=== PATIENT | female | born 1985 | race Caucasian/White ===

== ENCOUNTER 2021-10-25 16:15 | Inpatient (IN) | payer MEDICAID ==
[~2021-10-25] VITALS: Ht 154.9 cm; Wt 78.5 kg
[2021-10-25] MEDS ORDERED: LR 1,000 ML IV SCH (21:00)
[2021-10-25] MEDS ORDERED: CEFAZOLIN 2 GM IVPB PREMIX 50 ML IV ONE (21:00)
[2021-10-25 21:41] LABS: BASOPHILS % (AUTO) 0.4 % (0.0-2.0); EOSINOPHILS % (AUTO) 0.4 % (0.0-4.0); HEMATOCRIT 35.8 % (36-48); HEMOGLOBIN 12.3 g/dL (12.0-16.0); LYMPHOCYTES # (AUTO) 1.8 K/uL (1.0-5.5); LYMPHOCYTES % (AUTO) 23.3 % (20.5-51.5); MEAN CORPUSCULAR HEMOGLOBIN 32 pg (27-31); MEAN CORPUSCULAR HGB CONC 34 % (32-36); MEAN CORPUSCULAR VOLUME 92 fL (79.0-98.0); MONOCYTES # (AUTO) 0.6 K/uL (0.0-1.0); MONOCYTES % (AUTO) 7.6 % (1.7-9.3); NEUTROPHILS # (AUTO) 5.2 K/uL (1.8-7.7); NEUTROPHILS % (AUTO) 68.3 % (40.0-70.0); PLATELET COUNT (AUTO) 168 K/uL (130-430); RED BLOOD CELL COUNT(AUTO) 3.89 MIL/uL (4.2-6.2); RED CELL DISTRIBUTION WIDTH 15.8 % (9.0-15.0); WHITE BLOOD COUNT (AUTO) 7.6 K/uL (4.8-10.8)
[2021-10-25 22:41] VITALS: BP_SYST 116
[2021-10-25] MEDS ORDERED: ACETAMINOPHEN 325 MG TABLET PO PRN (23:15)
[2021-10-26 02:58] LABS: BILIRUBIN,URINE NEGATIVE (NEGATIVE); BLOOD, URINE 1+ (NEGATIVE); CLARITY/URINE CLEAR (CLEAR); COLOR,URINE YELLOW (YELLOW); GLUCOSE,URINE NEGATIVE (NEGATIVE); KETONES,URINE NEGATIVE (NEGATIVE); LEUKOCYTE ESTERASE ,URINE 3+ (NEGATIVE); NITRITE, URINE NEGATIVE (NEGATIVE); PROTEIN URINE NEGATIVE (NEGATIVE); UROBILINOGEN,URINE 0.2 (0.2-1.0)
[2021-10-26 03:43] LABS: BACTERIA,URINE MANY /HPF (None Seen)
[2021-10-26] MEDS ORDERED: NALBUPHINE HCL 10 MG/ML AMP IVP PRN ×2 (16:15)
[2021-10-26] MEDS ORDERED: fentaNYL CITRATE/PF 100 MCG/2 ML AMP IVP PRN ×2 (16:15)
[2021-10-26] MEDS ORDERED: DIPHENHYDRAMINE INJ 50 MG/ML VIAL IVP PRN ×2 (16:15)
[2021-10-26] MEDS ORDERED: NALOXONE HCL 0.4 MG/ML AMP (NARCAN) IVP PRN ×4 (16:15)
[2021-10-26] MEDS ORDERED: ONDANSETRON HCL 4 MG/2 ML VIAL IVP PRN ×3 (16:15)
[2021-10-26] MEDS ORDERED: KETOROLAC TROMETHAMINE 60 MG/2 ML VIAL IM PRN ×2 (16:15)
[2021-10-26] MEDS ORDERED: METOCLOPRAMIDE HCL 10 MG/2 ML VIAL IVP PRN (16:15)
[2021-10-26] MEDS ORDERED: BUPIVACAINE /PF 0.75% 10 ML VIAL INJ ONE (18:00)
[2021-10-26] MEDS ORDERED: LR 1,000 ML IV.SOLN IV ONE (18:00)
[2021-10-26] MEDS ORDERED: NS IRRIG SOLN 1000 ML IR ONE (18:00)
[2021-10-26 18:56] VITALS: BP_SYST 105
[2021-10-26] MEDS ORDERED: OXYTOCIN/0.9 % SODIUM CHLORIDE 1,000 ML IV ONE (19:15)
[2021-10-26] MEDS ORDERED: OXYCODONE/ACETAMINOPHEN 5-325 TABLET PO PRN (19:15)
[2021-10-26] MEDS ORDERED: DIPH-TET-PERTUS Vaccine 0.5 ML VIAL (ADACEL) I.M. PRN (19:15)
[2021-10-26] MEDS ORDERED: ANUSOL 1 EA SUPP.RECT (PREPARATION H) RC PRN (19:15)
[2021-10-26] MEDS ORDERED: BISACODYL 10 MG/SUPPOSITORY RC PRN (19:15)
[2021-10-26] MEDS ORDERED: MEASLES,MUMPS&RUBELLA VACC/PF 12500 UNIT/0.5 ML VIAL SUBQ PRN (19:15)
[2021-10-26] MEDS ORDERED: RHO(D) IMMUNE GLOBULIN/MALTOSE 1500 UNITS/1.3 ML (WINHRO) IM PRN (19:15)
[2021-10-26] MEDS ORDERED: TEMAZEPAM 15 MG CAPSULE PO PRN (19:15)
[2021-10-26] MEDS ORDERED: LANOLIN 7 GM OINT. TP PRN (19:15)
[2021-10-26] MEDS ORDERED: LR 1,000 ML IV SCH (19:15)
[2021-10-26] MEDS: SIMETHICONE 80 MG TAB.CHEW PO PRN (21:30)
[2021-10-26] MEDS: SENNOSIDES/DOCUSATE SODIUM 1 TAB TABLET(SENOKOT-S) PO SCH (21:30)
[2021-10-27] MEDS ORDERED: MEPERIDINE HCL/PF 25 MG/ML DISP.SYRIN IVP PRN (01:00)
[2021-10-27] MEDS ORDERED: KETOROLAC TROMETHAMINE 30 MG VIAL IVP ONE (01:00)
[2021-10-27 07:24] LABS: BASOPHILS % (AUTO) 0.1 % (0.0-2.0); EOSINOPHILS % (AUTO) 0.1 % (0.0-4.0); HEMATOCRIT 32.6 % (36-48); HEMOGLOBIN 11.1 g/dL (12.0-16.0); LYMPHOCYTES # (AUTO) 1.2 K/uL (1.0-5.5); LYMPHOCYTES % (AUTO) 13.5 % (20.5-51.5); MEAN CORPUSCULAR HEMOGLOBIN 31 pg (27-31); MEAN CORPUSCULAR HGB CONC 34 % (32-36); MEAN CORPUSCULAR VOLUME 92 fL (79.0-98.0); MONOCYTES # (AUTO) 0.6 K/uL (0.0-1.0); MONOCYTES % (AUTO) 6.3 % (1.7-9.3); NEUTROPHILS # (AUTO) 7.3 K/uL (1.8-7.7); PLATELET COUNT (AUTO) 142 K/uL (130-430); RED BLOOD CELL COUNT(AUTO) 3.53 MIL/uL (4.2-6.2); RED CELL DISTRIBUTION WIDTH 15.5 % (9.0-15.0); WHITE BLOOD COUNT (AUTO) 9.2 K/uL (4.8-10.8)
[2021-10-27] MEDS: DOCUSATE SODIUM 100 MG CAPSULE PO SCH (09:38)
[2021-10-27] MEDS: IBUPROFEN 600 MG TABLET PO SCH ×3 (11:47→23:59)
[2021-10-27] MEDS: HYDROcodone/ACETAMIN 5-325 MG TAB (NORCO/ VICODIN) PO PRN (13:14)
[2021-10-27] MEDS: SENNOSIDES/DOCUSATE SODIUM 1 TAB TABLET(SENOKOT-S) PO SCH (20:56)
[2021-10-27] MEDS: SIMETHICONE 80 MG TAB.CHEW PO PRN (20:56)
[2021-10-27] MEDS: OXYCODONE/ACETAMINOPHEN 5-325 TABLET PO PRN (20:57)
[2021-10-28] MEDS: IBUPROFEN 600 MG TABLET PO SCH ×3 (06:04→18:05)
[2021-10-28] MEDS: OXYCODONE/ACETAMINOPHEN 5-325 TABLET PO PRN ×3 (06:04→21:05)
[2021-10-28] MEDS: SIMETHICONE 80 MG TAB.CHEW PO PRN ×3 (06:04→21:05)
[2021-10-28] MEDS: DOCUSATE SODIUM 100 MG CAPSULE PO SCH (09:13)
[2021-10-29] MEDS: IBUPROFEN 600 MG TABLET PO SCH ×2 (00:23→06:10)
[2021-10-29] MEDS: SIMETHICONE 80 MG TAB.CHEW PO PRN (06:09)
[2021-10-29] MEDS: OXYCODONE/ACETAMINOPHEN 5-325 TABLET PO PRN (06:11)
[2021-10-29] MEDS: DOCUSATE SODIUM 100 MG CAPSULE PO SCH (09:26)
[2021-10-29] MEDS: HYDROcodone/ACETAMIN 5-325 MG TAB (NORCO/ VICODIN) PO PRN (09:27)
== END 2021-10-29 12:30 | disposition home or self-care (01) | DRG 540 ==
LOC: SPU 16:15 → OBSVTOIN 18:55 → SPU 10-27 16:42
PROVIDERS: ADMIT Obstetrics & Gynecology; ATTEND Obstetrics & Gynecology
PROC: 10D00Z1 Extraction of Products of Conception, Low, Open Approach (ICD-10-PCS; principal; 2021-10-26 18:00)
DX: O41.03X0 Oligohydramnios, third trimester, not applicable or unspecified (principal); D62 Acute posthemorrhagic anemia; O32.1XX0 Maternal care for breech presentation, not applicable or unspecified; Z20.822 Contact with and (suspected) exposure to COVID-19; O36.8130 Decreased fetal movements, third trimester, not applicable or unspecified; O32.2XX0 Maternal care for transverse and oblique lie, not applicable or unspecified; O90.81 Anemia of the puerperium; Z3A.38 38 weeks gestation of pregnancy; Z37.0 Single live birth
CPT/HCPCS: 36415; 59025; 81000; 81002; 85025; 86592; 86780; 86886; 86900; 86901; 87086; 90715; 94760; G0378; J0690; J1885; J2405; J2590; J3490; J7120